=== PATIENT | male | born 1990 | race Caucasian/White ===

== ENCOUNTER 2020-09-13 03:44 | Emergency (ER) | payer OTHER ==
[2020-09-13] MEDS ORDERED: Ketorolac 60 MG/2 ML SDV IM ONE (04:06)
--- NOTE | 2020-09-13 05:17 | EDM.PDOC ---
ED HPI GENERAL MEDICAL PROBLEM - General Chief Complaint: Lower Extremity Injury/Pain Stated Complaint: LEFT KNEE PAIN Time Seen by Provider: 09/13/20 04:07 - History of Present Illness INITIAL COMMENTS - FREE TEXT/NARRATIVE: HISTORY AND PHYSICAL: History of present illness: This is a 30-year-old gentleman who presents ER today secondary to pain to his left knee that he incurred at 6 PM last night. Patient reports that he was sitting in any position when he tried to stand up he felt severe pain to his left knee and has been having significant pain since. 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 Patient reports that he placed a brace on his left knee without any significant improvement in his discomfort. Patient denies any other symptomatology. Patient has any recent fevers, shakes, chills, nausea, vomiting, diarrhea. Patient reports that his diminished range of motion is limited secondary to pain and not secondary to mechanical obstruction. Review of systems: As per history of present illness and below otherwise all systems reviewed and negative. Past medical history: As per history of present illness and as reviewed below otherwise noncontributory. Surgical history: As per history of present illness and as reviewed below otherwise noncontributory. Social history: No reported history of drug or alcohol abuse. Family history: As per history of present illness and as reviewed below otherwise noncontributory. Physical exam: Constitutional: Patient is oriented to person, place, and time. Appears well- developed and well-nourished. No distress. HEENT: Moist mucous membranes Head: Normocephalic and atraumatic Eyes: Right eye exhibits no discharge. Left eye exhibits no discharge. No scleral icterus Neck: Normal range of motion. No tracheal deviation present. Cardiovascular: Normal rate and regular rhythm. Pulmonary: Effort normal, no respiratory distress. Abdominal: No distention Musculoskeletal: Normal range of motion Neurologic: Alert and oriented to person, place and time. Skin: [place], warm and dry. Psychiatric: Normal mood and affect. Behavior is normal. Judgment and thought content normal. Nursing note and vital signs have been reviewed Patient's ER physical exam is significant for tenderness to palpation to the posterior aspect of his popliteal fossa. Patient has good pulses intact. Patient has DP/PT that are intact. Patient has good capillary refill. Patient has no knee effusion. Patient has tenderness to palpation with anterior posterior drawer. No ligamentous laxity identified. No erythema or signs or symptoms of infection. This patient was seen and evaluated during the 2019 SARS-CoV-2 novel coronavirus pandemic period. Community viral transmission is ongoing at time of this encounter and the emergency department is operating under pandemic response procedures. Diagnostics: X-ray of left knee reveals no acute fracture. Therapeutics: Toradol 60 IM Assessment and plan: This is a 30-year-old gentleman who presents ER today complaining of pain to his left knee that started acutely when he was trying to stand up. Patient did not present with any signs or symptoms that would be concerning for an acute vascular occlusion. Patient's pain appears to be more consistent with a mechanical injury. Patient will continue to remain in the brace. Patient was given Toradol for pain will be discharged home with ibuprofen and Ultram to assist with his discomfort. Patient be given the phone number for the orthopedic clinic for outpatient follow-up for MRI. Reassessment at the time of disposition demonstrates that the patient is in no acute distress. The patient has remained stable throughout the entire ED visit and is without objective evidence for acute process requiring urgent intervention or hospitalization. The patient is stable for discharge, counseling is provided as documented above, discussed symptomatic treatment and specific conditions for return. I have spoken with the patient/caregiver and discussed todays findings, in addition to providing specific details for the plan of care. Questions are answered and there is agreement with the plan. Definitive disposition and diagnosis as appropriate pending reevaluation and review of above. Left Knee Pain Score (Numeric/FACES): 8 - Related Data Allergies Allergy/AdvReac Type Severity Reaction Status Date / Time No Known Allergies Allergy Verified 09/13/20 04:03 Home Meds: Home Meds Ibuprofen 600 mg PO Q6HR PRN #30 tablet 09/13/20 [Rx] Omeprazole 09/13/20 [History] traMADol [Ultram] 50 mg PO Q6H PRN #12 tab 09/13/20 [Rx] Past Medical History Gastrointestinal History: Reports: GERD - Infectious Disease History Infectious Disease History: Reports: Chicken Pox Social & Family History - Family History Family Medical History: No Pertinent Family History - Tobacco Use Tobacco Use Status *Q: Never Tobacco User - Caffeine Use Caffeine Use: Reports: None - Recreational Drug Use Recreational Drug Use: No Review of Systems - Review of Systems Review Of Systems: See Below ED EXAM, GENERAL - Physical Exam Exam: See Below Course - Vital Signs Last Recorded V/S: Last Vital Signs Temp 98.0 F 09/13/20 03:45 Pulse 89 09/13/20 03:45 Resp 18 09/13/20 03:45 BP 159/88 H 09/13/20 03:45 Pulse Ox 96 09/13/20 03:45 - Orders/Labs/Meds Orders: Active Orders 24 hr Category Date Time Status Knee 3V Lt [CR] Stat Exams 09/13/20 04:06 Taken Meds: Medications Discontinued Medications Generic Name Dose Route Start Last Admin Trade Name Shahzad PRN Reason Stop Dose Admin Ketorolac Tromethamine 60 mg 09/13/20 04:06 09/13/20 04:10 Toradol IM 09/13/20 04:07 60 mg ONETIME ONE Administration Departure - Departure Time of Disposition: 05:14 Disposition: Home, Self-Care 01 Condition: Good Clinical Impression: Sprain of knee - Discharge Information Instructions: Knee Sprain, Adult, [id number] Referrals: Jason Langley MD [Primary Care Provider] - Additional Instructions: You have been seen and evaluated in the ER today secondary to acute onset of pain to your left knee. Your x-rays did not identify any acute abnormalities. X-rays only identify injuries to bony structures and have significant limitations for evaluating ligaments. Please continue to wear your splint/brace to assist with healing. You will be given a prescription for ibuprofen and Ultr am to help you with your pain. You will also be given the phone number for the orthopedic clinic to call to follow-up to see if they think an MRI would be helpful. The following information is given to patients seen in the emergency department who are being discharged to home. This information is to outline your options for follow-up care. We provide all patients seen in our emergency department with a follow-up referral. The need for follow-up, as well as the timing and circumstances, are variable depending upon the specifics of your emergency department visit. If you don't have a primary care physician on staff, we will provide you with a referral. We always advise you to contact your personal physician following an emergency department visit to inform them of the circumstance of the visit and for follow-up with them and/or the need for any referrals to a consulting specialist. The emergency department will also refer you to a specialist when appropriate. This referral assures that you have the opportunity for follow-up care with a specialist. All of these measure are taken in an effort to provide you with optimal care, which includes your follow-up. Under all circumstances we always encourage you to contact your private physician who remains a resource for coordinating your care. When calling for follow-up care, please make the office aware that this follow-up is from your recent emergency room visit. If for any reason you are refused follow-up, please contact the [facility] Emergency Department at and asked to speak to the emergency department charge nurse. [facility] - [facility] Care [address] [place] [id number] [facility] [address] [place] [id number] Sepsis Event Note (ED) - Evaluation Sepsis Screening Result: No Definite Risk - Focused Exam Vital Signs: Vital Signs Temp Pulse Resp BP Pulse Ox 09/13/20 03:45 98.0 F 89 18 159/88 H 96 - My Orders Last 24 Hours: My Active Orders 09/13/20 04:06 Knee 3V Lt [CR] Stat - Assessment/Plan Last 24 Hours: My Active Orders 09/13/20 04:06 Knee 3V Lt [CR] Stat
--- NOTE | 2020-09-13 05:17 | CR ---
INDICATION: Left knee pain with possible posterior soft tissue swelling COMPARISON: None available. FINDINGS: The left knee was examined with AP, lateral, and bilateral sunrise views for a total of three views. There is no sign of fracture or dislocation. The medial and lateral compartments are normal in height. There is a mild suprapatellar joint effusion. There is no sign of any mass in the popliteal fossa region No soft tissue abnormality is seen. IMPRESSION: No sign of acute osseous injury. Mild suprapatellar joint effusion. No sign of any popliteal soft tissue swelling. Dictated by David Nichols MD @ Sep 13 2020 5:14AM Signed by Dr. David Nichols @ Sep 13 2020 5:16AM
== END 2020-09-13 05:28 | disposition home or self-care (01) ==
LOC: MW.ED 03:44
DX: S83.92XA Sprain of unspecified site of left knee, initial encounter (principal); X58.XXXA Exposure to other specified factors, initial encounter
CPT/HCPCS: 73562; 96372; 99283; J1885

== ENCOUNTER 2021-07-31 08:22 | Emergency (ER) | payer OTHER ==
[2021-07-31] MEDS ORDERED: Sodium Chloride 0.9% 1,000 ML IV ONE (08:52)
[2021-07-31] MEDS ORDERED: Metoclopramide 10 MG/2 ML SDV IVPUSH ONE (08:52)
--- NOTE | 2021-07-31 08:55 | EDM.PDOC ---
ED HPI GENERAL MEDICAL PROBLEM - General Chief Complaint: Headache Stated Complaint: RIGHT SIDE FACE PAIN AND MIAGRAINE Time Seen by Provider: 07/31/21 08:26 Source of Information: Reports: Patient History Limitations: Reports: No Limitations - History of Present Illness INITIAL COMMENTS - FREE TEXT/NARRATIVE: Patient is a 31-year-old male with a history of headaches and migraine presents today for a headache for the past 2 days. States he tried Excedrin [id number] with minimal relief. He also states he now has light sensitivity to his right eye as well. He denies any other neurologic complaints no numbness weakness in his body no confusion no vision change in his left eye. Headache Pain Score (Numeric/FACES): 9 - Related Data Allergies Allergy/AdvReac Type Severity Reaction Status Date / Time No Known Allergies Allergy Verified 09/13/20 04:03 Home Meds: Home Meds Ibuprofen 600 mg PO Q6HR PRN #30 tablet 09/13/20 [Rx] Aspirin/Acetaminophen/Caffeine [Excedrin Migraine Caplet] 1 each PO PRN 07/31/21 [History] Past Medical History Gastrointestinal History: Reports: GERD Neurological History: Reports: Migraines - Infectious Disease History Infectious Disease History: Reports: Chicken Pox, Measles - Past Surgical History Musculoskeletal Surgical History: Reports: Other (See Below) Other Musculoskeletal Surgeries/Procedures:: Pt reports major reconstructive surgery to the right leg, 2017 Social & Family History - Family History Family Medical History: No Pertinent Family History Cardiac: Reports: CAD - Tobacco Use Tobacco Use Status *Q: Former Tobacco User Used Tobacco, but Quit: Yes Month/Year Tobacco Last Used: 09/2009 Second Hand Smoke Exposure: No - Caffeine Use Caffeine Use: Reports: Energy Drinks - Recreational Drug Use Recreational Drug Use: No ED ROS GENERAL - Review of Systems Review Of Systems: See Below Constitutional: Reports: No Symptoms HEENT: Reports: No Symptoms Respiratory: Reports: No Symptoms Cardiovascular: Reports: No Symptoms Endocrine: Reports: No Symptoms GI/Abdominal: Reports: No Symptoms : Reports: No Symptoms Musculoskeletal: Reports: No Symptoms Skin: Reports: No Symptoms Neurological: Reports: Headache Psychiatric: Reports: No Symptoms Hematologic/Lymphatic: Reports: No Symptoms Immunologic: Reports: No Symptoms - Physical Exam Exam: See Below Exam Limited By: No Limitations General Appearance: Alert, WD/WN, No Apparent Distress Eye Exam: Bilateral Eye: EOMI, PERRL Head Exam: Atraumatic Neck: Normal Inspection, Supple, Non-Tender Respiratory/Chest: No Respiratory Distress, Lungs Clear, Normal Breath Sounds Cardiovascular: Normal Peripheral Pulses, Regular Rate, Rhythm GI/Abdominal: Normal Bowel Sounds, Soft, Non-Tender Neuro Exam (Abbreviated): Alert, Oriented, Normal Cognition, Normal Gait, No Motor/Sensory Deficits Extremities: Normal Inspection, Normal Range of Motion Psychiatric: Normal Affect Skin Exam: Warm Course - Vital Signs Last Recorded V/S: Last Vital Signs Temp 97 F 07/31/21 09:23 Pulse 77 07/31/21 09:23 Resp 16 07/31/21 09:23 BP 129/77 07/31/21 09:23 Pulse Ox 97 07/31/21 09:23 - Orders/Labs/Meds Labs: Laboratory Tests 07/31/21 07/31/21 07/31/21 Range/Units 08:48 08:48 08:48 WBC 3.75 L (4.0-11.0) K/uL RBC 5.06 (4.50-5.90) M/uL Hgb 14.7 (13.0-17.0) g/dL Hct 42.9 (38.0-50.0) % MCV 84.8 (80.0-98.0) fL MCH 29.1 (27.0-32.0) pg MCHC 34.3 (31.0-37.0) g/dL RDW Std Deviation 40.3 (28.0-62.0) fl RDW Coeff of Navneet 13 (11.0-15.0) % Plt Count 302 (150-400) K/uL MPV 9.90 (7.40-12.00) fL Neut % (Auto) 39.2 L (48.0-80.0) % Lymph % (Auto) 38.9 (16.0-40.0) % [place] % (Auto) 18.9 H (0.0-15.0) % Eos % (Auto) 2.7 (0.0-7.0) % Baso % (Auto) 0.3 (0.0-1.5) % Neut # (Auto) 1.5 (1.4-5.7) K/uL Lymph # (Auto) 1.5 (0.6-2.4) K/uL [place] # (Auto) 0.7 (0.0-0.8) K/uL Eos # (Auto) 0.1 (0.0-0.7) K/uL Baso # (Auto) 0.0 (0.0-0.1) K/uL Nucleated RBC % 0.0 /100WBC Nucleated RBCs # 0 K/uL INR 0.97 APTT 25.2 (18.6-31.3) SEC Sodium 141 (136-148) mmol/L Potassium 4.0 (3.5-5.1) mmol/L Chloride 102 (98-107) mmol/L Carbon Dioxide 27.1 (21.0-32.0) mmol/L BUN 8 (7.0-18.0) mg/dL Creatinine 0.9 (0.8-1.3) mg/dL Est Cr Clr Drug Dosing 110.17 mL/min Estimated GFR (MDRD) > 60.0 ml/min Glucose 95 (74-106) mg/dL Calcium 8.7 (8.5-10.1) mg/dL Total Bilirubin 0.3 (0.2-1.0) mg/dL AST 16 (15-37) IU/L ALT 35 (14-63) IU/L Alkaline Phosphatase 73 (46-116) U/L Total Protein 8.0 (6.4-8.2) g/dL Albumin 4.0 (3.4-5.0) g/dL Globulin 4.0 (2.6-4.0) g/dL Albumin/Globulin Ratio 1.0 (0.9-1.6) Meds: Medications Discontinued Medications Generic Name Dose Route Start Last Admin Trade Name Freq PRN Reason Stop Dose Admin Sodium Chloride 1,000 mls @ 1,000 mls/hr 07/31/21 08:52 07/31/21 09:02 Normal Saline IV 07/31/21 09:51 1,000 mls/hr .Bolus ONE Administration Metoclopramide HCl 10 mg 07/31/21 08:52 07/31/21 09:02 Metoclopramide 10 Mg/2 Ml Sdv IVPUSH 07/31/21 08:53 10 mg ONETIME ONE Administration - Re-Assessments/Exams Free Text/Narrative Re-Assessment/Exam: 07/31/21 10:11 Patient's headache is improved CT scan is negative patient will be discharged home patient has no other complaints. Departure - Departure Time of Disposition: 10:11 Disposition: Home, Self-Care 01 Condition: Good Clinical Impression: Migraine - Discharge Information *PRESCRIPTION DRUG MONITORING PROGRAM REVIEWED*: Not Applicable *COPY OF PRESCRIPTION DRUG MONITORING REPORT IN PATIENT ROD: Not Applicable Instructions: Migraine Headache, [id number] Referrals: Jason Langley MD [Primary Care Provider] - Forms: ED Department Discharge Additional Instructions: You are seen today for headache. You mentioned that you also have headaches in the past as well. We gave you some medication here to help control your headache which is called Reglan. We also did a CAT scan of your head that was negative did not show any bleeds or masses. If you have any other concerning signs or symptoms please return to the ED> The following information is given to patients seen in the emergency department who are being discharged to home. This information is to outline your options for follow-up care. We provide all patients seen in our emergency department with a follow-up referral. The need for follow-up, as well as the timing and circumstances, are variable depending upon the specifics of your emergency department visit. If you don't have a primary care physician on staff, we will provide you with a referral. We always advise you to contact your personal physician following an emergency department visit to inform them of the circumstance of the visit and for follow-up with them and/or the need for any referrals to a consulting specialist. The emergency department will also refer you to a specialist when appropriate. This referral assures that you have the opportunity for follow-up care with a specialist. All of these measure are taken in an effort to provide you with opti mal care, which includes your follow-up. Under all circumstances we always encourage you to contact your private physician who remains a resource for coordinating your care. When calling for follow-up care, please make the office aware that this follow-up is from your recent emergency room visit. If for any reason you are refused follow-up, please contact the [facility] Emergency Department at and asked to speak to the emergency department charge nurse. Please follow up with your primary care physician. If you do not have a primary care physician, see below: [facility] [address] [place] [id number] [facility] [address] [place] [address] Sepsis Event Note (ED) - Evaluation Sepsis Screening Result: No Definite Risk - Focused Exam Vital Signs: Vital Signs Temp Pulse Resp BP Pulse Ox 07/31/21 09:23 97 F 77 16 129/77 97 07/31/21 08:34 97.4 F 96 18 138/95 H 96 - Assessment/Plan Plan: Patient is a 31-year-old male who presents today for headache. Patient has history of migraines states this feels similar to ones in the past. We will provide Reglan for headache relief and also do a CT scan of his head and reassess patient.
[2021-07-31 09:20] LABS: BLOOD UREA NITROGEN,BUN 8 mg/dL (7.0-18.0); CARBON DIOXIDE,CO2 27.1 mmol/L (21.0-32.0); CHLORIDE,CL 102 mmol/L (98-107); GLUCOSE RANDOM 95 mg/dL (74-106); SODIUM,NA 141 mmol/L (136-148)
--- NOTE | 2021-07-31 09:28 | CT ---
INDICATION: Headache. TECHNIQUE: Noncontrast CT images acquired through the brain. COMPARISON None. FINDINGS: The ventricles and sulci are within normal limits for patient age. No mass effect or midline shift. The alexis-white differentiation is maintained. No acute intracranial hemorrhage or pathologic extra-axial fluid collection. Partially empty sella may represent an anatomic variant. The calvarium is intact. The globes are symmetric. Postsurgical changes of right maxillary antrostomy. [id number] mucosal thickening in the hypoplastic right maxillary sinus. The mastoid air cells are clear. IMPRESSION: 1. No acute intracranial hemorrhage or mass effect. 2. Menv-mx-[id number] mucosal thickening in the hypoplastic right maxillary sinus. Please note that all CT scans at this facility use dose modulation, iterative reconstruction, and/or weight-based dosing when appropriate to reduce radiation dose to as low as reasonably achievable. Dictated by Chidi Lama MD @ 07/31/2021 9:27:46 AM (Electronically Signed)
== END 2021-07-31 10:34 | disposition home or self-care (01) ==
LOC: MW.ED 08:22
DX: G43.909 Migraine, unspecified, not intractable, without status migrainosus (principal); Z87.891 Personal history of nicotine dependence
CPT/HCPCS: 36415; 70450; 80053; 85025; 85610; 85730; 96374; 99284; J2765; J7030

== ENCOUNTER 2021-08-13 07:22 | Emergency (ER) | payer OTHER ==
--- NOTE | 2021-08-13 07:36 | EDM.PDOC ---
ED HPI GENERAL MEDICAL PROBLEM - General Chief Complaint: Respiratory Problem Stated Complaint: CONTACTED BY STATE OF [place] EXPOSED TO COVID Time Seen by Provider: 08/13/21 07:25 Source of Information: Reports: Patient History Limitations: Reports: No Limitations - History of Present Illness INITIAL COMMENTS - FREE TEXT/NARRATIVE: Is a 31-year-old male history of migraines presents today for possible Covid exposure. 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 He states that he feels slightly sick with some body aches and slight cough denies any shortness of breath and chest pain trey pain no other complaints. Treatments [employer]: Reports: NSAIDS - Related Data Allergies Allergy/AdvReac Type Severity Reaction Status Date / Time No Known Allergies Allergy Verified 08/13/21 07:25 Home Meds: Home Meds Ibuprofen 600 mg PO Q6HR PRN #30 tablet 09/13/20 [Rx] Aspirin/Acetaminophen/Caffeine [Excedrin Migraine Caplet] 1 each PO Q6H PRN 07/31/21 [History] Rizatriptan Benzoate [Rizatriptan] 5 mg PO Q6H PRN 08/13/21 [History] Past Medical History Gastrointestinal History: Reports: GERD Neurological History: Reports: Migraines - Infectious Disease History Infectious Disease History: Reports: Chicken Pox, Measles - Past Surgical History Musculoskeletal Surgical History: Reports: Other (See Below) Other Musculoskeletal Surgeries/Procedures:: Pt reports major reconstructive surgery to the right leg, 2017 Social & Family History - Family History Family Medical History: No Pertinent Family History Cardiac: Reports: CAD - Caffeine Use Caffeine Use: Reports: Energy Drinks ED ROS GENERAL - Review of Systems Review Of Systems: See Below Constitutional: Reports: Malaise HEENT: Reports: No Symptoms Respiratory: Reports: No Symptoms Cardiovascular: Reports: No Symptoms Endocrine: Reports: No Symptoms GI/Abdominal: Reports: No Symptoms : Reports: No Symptoms Musculoskeletal: Reports: No Symptoms Skin: Reports: No Symptoms Neurological: Reports: No Symptoms Psychiatric: Reports: No Symptoms Hematologic/Lymphatic: Reports: No Symptoms Immunologic: Reports: No Symptoms ED EXAM, GENERAL - Physical Exam Exam: See Below Exam Limited By: No Limitations General Appearance: Alert, WD/WN, No Apparent Distress Eye Exam: Bilateral Eye: EOMI, PERRL Ears: Normal External Exam, Normal TMs Nose: Normal Inspection Head: Atraumatic, Normocephalic Neck: Normal Inspection Respiratory/Chest: No Respiratory Distress, Lungs Clear, Normal Breath Sounds Cardiovascular: Normal Peripheral Pulses, Regular Rate, Rhythm GI/Abdominal: Normal Bowel Sounds, Soft, Non-Tender Extremities: Normal Inspection, Normal Range of Motion Neurological: Alert, Oriented, Normal Cognition, Normal Gait Course - Vital Signs Last Recorded V/S: Last Vital Signs Temp 97.7 F 08/13/21 07:26 Pulse 87 08/13/21 07:26 Resp 15 08/13/21 07:26 BP 158/94 H 08/13/21 07:26 Pulse Ox 98 08/13/21 07:26 - Orders/Labs/Meds Labs: Laboratory Tests 08/13/21 Range/Units 07:35 SARS-CoV-2 RNA ([place]) POSITIVE H (NEGATIVE) Departure - Departure Time of Disposition: 07:34 Disposition: Home, Self-Care 01 Condition: Good Clinical Impression: Close exposure to COVID-19 virus - Discharge Information *PRESCRIPTION DRUG MONITORING PROGRAM REVIEWED*: Not Applicable *COPY OF PRESCRIPTION DRUG MONITORING REPORT IN PATIENT ROD: Not Applicable Instructions: 10 Things You Can Do to Manage Your COVID-19 Symptoms at Home - [facility] (03/18/2021) Forms: ED Department Discharge Additional Instructions: You were seen today for possible Covid exposure. We sent the Covid test and your results are positive please continue to try [id number] medications if you have any other concerning signs or symptoms please return to the ED otherwise follow-up to primary care physician. The following information is given to patients seen in the emergency department who are being discharged to home. This information is to outline your options for follow-up care. We provide all patients seen in our emergency department with a follow-up referral. The need for follow-up, as well as the timing and circumstances, are variable depending upon the specifics of your emergency department visit. If you don't have a primary care physician on staff, we will provide you with a referral. We always advise you to contact your personal physician following an emergency department visit to inform them of the circumstance of the visit and for follow-up with them and/or the need for any referrals to a consulting specialist. The emergency department will also refer you to a specialist when appropriate. This referral assures that you have the opportunity for follow-up care with a specialist. All of these measure are taken in an effort to provide you with optimal care, which includes your follow-up. Under all circumstances we always encourage you to contact your private physician who remains a resource for coordinating your care. When calling for follow-up care, please make the office aware that this follow-up is from your recent emergency room visit. If for any reason you are refused follow-up, please contact the [facility] at and asked to speak to the emergency department charge nurse. Please follow up with your primary care physician. If you do not have a primary care physician, see below: [facility] [address] [place] [id number] [facility] [address] [place] [id number] Sepsis Event Note (ED) - Evaluation Sepsis Screening Result: No Definite Risk - Focused Exam Vital Signs: Vital Signs Temp Pulse Resp BP Pulse Ox 08/13/21 07:26 97.7 F 87 15 158/94 H 98 - Assessment/Plan Plan: Patient is a 31-year-old male who presents today for possible Covid exposure. Patient is satting 90% on room air looks well on exam we will obtain Covid test and reassess.
== END 2021-08-13 08:42 | disposition home or self-care (01) ==
LOC: MW.ED 07:22
DX: U07.1 COVID-19 (principal); G43.909 Migraine, unspecified, not intractable, without status migrainosus; Z79.899 Other long term (current) drug therapy
CPT/HCPCS: 99283; U0002

== ENCOUNTER 2022-01-20 07:00 | Emergency (ER) | payer OTHER ==
[2022-01-20] MEDS ORDERED: Ketorolac 30 MG/ML SDV IM ONE (07:12)
== END 2022-01-20 07:58 | disposition home or self-care (01) ==
LOC: MW.ED 07:00
DX: S92.352A Displaced fracture of fifth metatarsal bone, left foot, initial encounter for closed fracture (principal); Z79.82 Long term (current) use of aspirin; W18.40XA Slipping, tripping and stumbling without falling, unspecified, initial encounter
CPT/HCPCS: 29515; 73630-26-LT; 73630-LT; 99283-25

== ENCOUNTER 2022-07-17 00:01 | Emergency (ER) | payer SELFPAY | END 2022-07-17 00:24 | LOC: MW.ED 00:01 | DX: Z02.89 Encounter for other administrative examinations (principal) | CPT/HCPCS: 99282 ==

== ENCOUNTER 2024-03-28 18:32 | Emergency (ER) | payer SELFPAY ==
[2024-03-28 18:52] LABS: BASOPHILS ABSOLUTE AUTO 0.07 K/uL (0.00-0.20); BASOPHILS PERCENT AUTO 0.7 % (0.0-1.0); EOSINOPHILS ABSOLUTE AUTO 0.17 K/uL (0.00-0.45); EOSINOPHILS PERCENT AUTO 1.6 % (0.0-6.0); HEMATOCRIT 52.6 % (42.0-52.0); HEMOGLOBIN 17.4 g/dL (14.0-18.0); IMMATURE GRAN ABSOLUTE AUTO 0.05 K/uL (0.00-0.05); IMMATURE GRAN PERCENT AUTO 0.5 % (0.0-0.4); LYMPHOCYTES ABSOLUTE AUTO 1.52 K/uL (1.00-4.80); LYMPHOCYTES PERCENT AUTO 14.1 % (24.0-44.0); MEAN CORPUSCULAR HEMOGLOBIN 27.5 pg (28.0-32.0); MEAN CORPUSCULAR HGB CONC 33.1 g/dL (32.0-36.0); MEAN CORPUSCULAR VOLUME 83.1 fL (83.0-99.0); MEAN PLATELET VOLUME 9.4 fL (9.4-12.4); MONOCYTES ABSOLUTE AUTO 0.72 K/uL (0.00-0.80); MONOCYTES PERCENT AUTO 6.7 % (0.0-8.0); NEUTROPHILS ABSOLUTE AUTO 8.23 K/uL (1.80-7.70); NEUTROPHILS PERCENT AUTO 76.4 % (41.0-71.0); PLATELET COUNT,PLT 390 K/uL (150-400); RED BLOOD CELL COUNT 6.33 M/uL (4.52-5.90); WHITE BLOOD CELL COUNT,WBC 10.76 K/uL (3.9-11.3)
[2024-03-28 19:01] LABS: INR 1.04 (0.86-1.11)
[2024-03-28 19:02] LABS: APPEARANCE,URINE CLEAR; BILIRUBIN,URINE NEGATIVE (NEGATIVE); COLOR,URINE YELLOW; GLUCOSE,URINE NEGATIVE (NEGATIVE); KETONES,URINE NEGATIVE (NEGATIVE); LEUKOCYTE ESTERASE,URINE NEGATIVE (NEGATIVE); NITRITE,URINE NEGATIVE (NEGATIVE); OCCULT BLOOD,URINE NEGATIVE (NEGATIVE); PROTEIN,URINE NEGATIVE (NEGATIVE); UROBILINOGEN,URINE 0.2 EU/dL (<2.0)
[2024-03-28] MEDS: Ketorolac 30 MG/ML SDV IVPUSH ONE (19:08)
[2024-03-28] MEDS: Aspirin 81 MG Tab.Chew PO ONE (19:08)
[2024-03-28] MEDS: Alum Hydro/Mag Hydro/Simeth XS 15 ML, Lidocaine 2% 5 ML PO ONE (19:08)
[2024-03-28] MEDS: Sodium Chloride 0.9% 1,000 ML IV ONE (19:09)
[2024-03-28 19:15] LABS: A/G RATIO 1.2 (0.9-1.6); BILIRUBIN TOTAL 0.5 mg/dL (0.2-1.0); CALCIUM 8.8 mg/dL (8.5-10.1); CARBON DIOXIDE,CO2 26.4 mmol/L (21.0-32.0); CREATININE 1.2 mg/dL (0.8-1.3); EST CRCL DRUG DOSING (CG) 81.09 mL/min; POTASSIUM,K 4.9 mmol/L (3.5-5.1); PROTEIN TOTAL,TP 7.4 g/dL (6.4-8.2)
[2024-03-28 19:20] LABS: C-REACTIVE PROTEIN 0.17 mg/dL (<0.3); TSH ULTRASENSITIVE 1.42 uIU/mL (0.36-3.74)
[2024-03-28] MEDS: LORazepam 2 MG/ML SDV IVPUSH STA (19:33)
== END 2024-03-28 23:07 | disposition home or self-care (01) ==
LOC: MW.ED 18:32
DX: R07.9 Chest pain, unspecified (principal); Z75.8 Other problems related to medical facilities and other health care
CPT/HCPCS: 36415; 71046; 80053; 81003; 83690; 84443; 84484; 85025; 85379; 85610; 85652; 86140; 93005; 96361; 96374; 96375; 99285; A9270; J1885; J2060; J7030; 93010

== ENCOUNTER 2024-10-13 05:20 | Emergency (ER) | payer OTHER ==
[2024-10-13] MEDS: Cyclobenzaprine 10 MG Tab PO ONE (05:51)
== END 2024-10-13 06:45 | disposition home or self-care (01) ==
LOC: MW.ED 05:20
DX: M54.12 Radiculopathy, cervical region (principal); Z75.8 Other problems related to medical facilities and other health care; Z79.899 Other long term (current) drug therapy
CPT/HCPCS: 72125; 99284; A9270; 99283

== ENCOUNTER 2025-02-04 16:47 | Emergency (ER) | payer OTHER ==
[2025-02-04] MEDS: Ondansetron 4 MG Tab.DIS PO ONE (18:05)
[2025-02-04] MEDS: Acetaminophen/oxyCODONE 325-5 MG Tab PO ONE (18:05)
== END 2025-02-04 19:00 | disposition home or self-care (01) ==
LOC: MW.ED 16:47
DX: S93.402A Sprain of unspecified ligament of left ankle, initial encounter (principal); Z79.899 Other long term (current) drug therapy; Z75.3 Unavailability and inaccessibility of health-care facilities; W22.8XXA Striking against or struck by other objects, initial encounter
CPT/HCPCS: 73562-26-LT; 73562-LT; 73590-26-LT; 73590-LT; 73610-26-LT; 73610-LT; 99283; A9270-GY